=== PATIENT | male | born 1945 | race Caucasian/White ===

== ENCOUNTER 2016-12-03 23:30 | Emergency (ER) | payer OTHER, SELFPAY ==
--- NOTE | 2016-12-04 01:45 | ERRECORD ---
[facility] EMERGENCY RECORD [facility] CHIEF COMPLAINT: Patient presents for evaluation of high blood pressure. HISTORIAN: History provided by patient, 71M presents to the ED with concern for BP abnormality. States his systolic is high and diastolic low. Also reports occasional headaches when he stands up, and notes a history of orthostatic hypotension. Denies chest pain, denies abdominal pain or other complaints. Describes headache as occurring when he stands up, but otherwise not present, denies worst headache of his life or sudden onset. Reports that his heart rate is usually slow. LOCATION: Symptoms are generalized. QUALITY: Pain is dull in nature, described as aching. TIME COURSE: There has been no change in the patient's symptoms over time, are intermittent. ASSOCIATED WITH: No associated chest pain, Associated with headache. EXACERBATED BY: Patient's condition exacerbated by nothing. RELIEVED BY: Patient's condition relieved by nothing. RISK FACTORS: Coronary artery disease risk factors, include known coronary artery disease. ROS (23:52 JJA) CONSTITUTIONAL: Negative constitutional review of systems, Historian denies chills, denies fever. EYES: Negative eye review of systems, Historian denies eye pain, denies eye discharge, denies vision changes. ENT: Negative ears, nose, throat review of systems, Historian denies rhinorrhea, denies sore throat. CARDIOVASCULAR: Negative cardiovascular review of systems, Historian denies chest pain, denies palpitations. RESPIRATORY: Negative respiratory review of systems, Historian denies cough, denies shortness of breath. GI: Negative gastrointestinal review of systems, Historian denies abdominal pain, denies constipation, denies diarrhea, denies nausea, denies vomiting. GENITOURINARY MALE: Negative genitourinary review of systems, Historian denies dysuria, denies hematuria. MUSCULOSKELETAL: Negative musculoskeletal review of systems, Historian denies back pain, denies fall, denies injury, denies neck pain. SKIN: Negative skin review of systems, Historian denies rash, denies skin changes. NEUROLOGIC: Historian reports headache, reports headache. HEMO/LYMPHATIC: Normal hematologic/lymphatic system review, Historian denies abnormal blood clotting. PAST MEDICAL HISTORY (23:42 [facility]ADK) MEDICAL HISTORY: Past medical history includes history of hypertension, which has been treated, Patient is compliant, &a-1R&a+25V*p+0X*[id number]*c202B*c15G*c2P*p-0X&a-25V&a+1R Name: Rm Loredo : 1945 M71 MedRec: [id number] AcctNum: [id number] Prepared: Susana Dec 04, 2016 01:26 by Interface Page [address] 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 REVIEWED 12/03/16. MALE SURGICAL HISTORY: 2 HEART CATHS-NO STENTS, CAROTID ENDARTECTOMY,. heart ablation; ear tube inserted few years ago. brain surgery, left middle toe amputation. REVIEWED 12/03/16. PSYCHIATRIC HISTORY: No previous psychiatric history. REVIEWED 12/03/16. SOCIAL HISTORY: Social History includes lives with , Patient denies alcohol use, Patient denies drug use, Patient is a former tobacco user, Patient quit smoking more than 10 years ago. REVIEWED 12/03/16. FAMILY HISTORY: Family history is non-contributory to this case. KNOWN ALLERGIES No Known Allergies (Unconfirmed) No Known Drug Allergies CURRENT MEDICATIONS atorvastatin: TABLET : Strength - 20 mg : ORAL Patient Dose: 20 mg Oral once a day (at bedtime). (23:38 AADK) NovoLOG Flexpen: INSULIN PEN (ML) : Strength - 100 unit/mL : [3 mL(s)] : SUBCUTANEOUS Patient Dose: 25 units Subcutaneous 3 times a day (before meals).NOT USED RECENTLY. (23:38 AADK) lisinopril: TABLET : Strength - 40 mg : ORAL Patient Dose: 40 mg Oral once a day (in the morning). (23:38 AADK) citalopram: TABLET : Strength - 40 mg : ORAL Patient Dose: 20 mg Oral once a day. (23:38 AADK) cyanocobalamin (vitamin B-12): TABLET : Strength - 1,000 mcg : ORAL Patient Dose: 1000 mcg Oral once a day. (23:38 AADK) levETIRAcetam: TABLET : Strength - 500 mg : ORAL Patient Dose: 500 mg Oral 2 times a day. (23:38 AADK) Lasix: TABLET : Strength - 20 mg : ORAL Patient Dose: 1 tab(s) Oral once a day. (23:38 AADK) amLODIPine: TABLET : Strength - 5 mg : ORAL Patient Dose: 5 mg Oral once a day (in the morning). (23:38 AADK) Levemir: &a-1R&a+25V*p+0X*c6123B*c202B*c15G*c2P*p-0X&a-25V&a+1R Name: Rm Loredo : 1945 M71 MedRec: [id number] AcctNum: [id number] Prepared: Susana Dec 04, 2016 01:26 by Interface Page [address] [facility] EMERGENCY RECORD VIAL (ML) : Strength - 100 unit/mL : SUBCUTANEOUS Patient Dose: 80 units Subcutaneous 2 times a day. (23:39 AADK) VITAL SIGNS VITAL SIGNS: BP: 181/72, Pulse: 54, Resp: 18 (Non-Labored), Temp: 97.6 (Oral), Pain: 0, O2 sat: 97 on Room Air, Time: 12/03/2016 23:41. (23:41 [facility]) BP: 171/67, Pulse: 51, O2 sat: 95 on Room Air, Time: 12/03/2016 23:46. (23:46 AADK) BP: 153/64, Pulse: 53, Resp: 20 (Non-Labored), O2 sat: 98 on Room Air, Time: 12/03/2016 17:35. (17:35 AADK) BP: 168/72, Time: 12/04/2016 00:30. (MonDec 04, 2016 00:30 AADK) BP: 162/66, Time: 12/04/2016 00:45. ([place] Dec 04, 2016 00:45 [facility]) BP: 150/78, Pulse: 48, Resp: 16, Pain: 0, O2 sat: 97 on RA, Time: 12/04/2016 01:20. ([place] Dec 04, 2016 01:20 [facility]) PHYSICAL EXAM (23:52 [facility]) CONSTITUTIONAL: Vital signs reviewed, Patient afebrile, Pulse, bradycardic, Blood pressure, hypertensive, Respiratory rate normal, Patient appears non toxic, Patient appears pain free, Patient alert and oriented to person, place and time. HEAD: Head exam normal, Head exam included findings of head atraumatic, normocephalic. EYES: Eye exam normal, Eye exam included findings of eyelids normal to inspection, Pupils equally round and reactive to light, Extraocular muscles intact, no nystagmus. ENT: ENT exam normal, Ear exam normal, external ear normal, tympanic membranes normal, no bleeding, Pharynx exam normal, Uvula exam normal, Tonsil exam normal, Mouth exam normal, mucous membranes moist, teeth normal. NECK: Neck exam normal, Neck exam included findings of normal range of motion, Trachea midline, no meningeal signs, no cervical adenopathy, no tenderness. RESPIRATORY CHEST: Respiratory and chest exam normal, Respiratory exam included findings of no respiratory distress, Breath sounds clear. CARDIOVASCULAR: Cardiovascular assessment normal, Cardiovascular exam included findings of heart rate regular rate and rhythm, Heart sounds normal. ABDOMEN MALE: Abdominal exam included findings of abdomen nontender, Bowel sounds normal, no distension, no mass, no pulsatile masses, no peritoneal signs, no rigidity, no guarding, no rebound, Rovsing's sign absent. BACK: Back exam normal, Back exam included findings of normal inspection, range of motion normal, no tenderness. UPPER EXTREMITY: Upper extremity exam normal, Upper extremity exam included findings of inspection normal, Range of motion normal, Motor strength normal, Sensation intact, Radial pulse normal. &a-1R&a+25V*p+0X*d1384S*c202B*c15G*c2P*p-0X&a-25V&a+1R Name: Rm Loredo : 1945 M71 MedRec: [id number] AcctNum: [id number] Prepared: Susana Dec 04, 2016 01:26 by Interface Page [address] [facility] EMERGENCY RECORD LOWER EXTREMITY: Lower extremity exam normal, Lower extremity exam included findings of inspection normal, Range of motion normal, Motor strength normal, Sensation intact, Posterior tibial pulse normal, Pedal pulse normal. NEURO: Neuro exam normal, Neuro exam findings include patient oriented to person, place and time, Speech normal, Gait normal. SKIN: Skin exam normal, Skin exam included findings of skin warm, dry, and normal in color, no rash. PSYCHIATRIC: Psychiatric exam normal, Normal affect. EKG INTERPRETATION ([place] Dec 04, 2016 00:12 [facility]) 12 LEAD EKG INTERPRETATION: 12 lead EKG shows, sinus bradycardia, Interpretation:, Similar to old EKG, Conduction with, incomplete left bundle branch block. DOCTOR NOTES ([place] Dec 04, 2016 00:12 [facility]) TEXT: Patient presented with a concern for abnormal blood pressure readings at home. He has some headaches with standing that are not abnormal for him due to his orthostatic hypotension. No findings concerning for subarachnoid hemorrhage, normal head CT and no acute ischemic changes noted on his EKG. His bradycardia is not abnormal for him, and he has no chest pain symptoms that would prompt further workup or investigation. He has an appointment with his wine blender on the , and will try and get one earlier. Appropriate for discharge home and outpatient follow up. PATIENT STATUS: Patient has improved since arrival to emergency department. PATIENT PLAN: The patient will be discharged. DATA REVIEWED: Xray data reviewed, Reviewed EKG. PROBLEM LIST No recorded problems DIAGNOSIS ([place] Dec 04, 2016 01:09 [facility]) FINAL: PRIMARY: Hypertension. PRESCRIPTION No recorded prescriptions DISPOSITION PATIENT: Disposition Type: Discharge, Disposition: *Discharge Home. ([place] Dec 04, 2016 01:09 [facility]) Patient left the department. ([place] Dec 04, 2016 01:23 [facility]) Vazquez: [facility]=[place] Gonzales, Sarah [facility]=MD Saleem Jason [facility]=[place] Hill, Stephanie &a-1R&a+25V*p+0X*c3979G*c202B*c15G*c2P*p-0X&a-25V&a+1R Name: Rm Loredo : 1945 M71 MedRec: [id number] AcctNum: [id number] Prepared: Susana Dec 04, 2016 01:26 by Interface Page 4 of 4 pMD MTDD
--- NOTE | 2016-12-04 01:47 | PICIS ---
[facility] EMERGENCY RECORD TRIAGE ([facility] Dec 03, 2016 23:35 AADK) PATIENT: NAME: Rm Loredo, AGE: 71, GENDER: male, : Mon1945, TIME OF GREET: Sat Dec 03, 2016 23:31, PREFERRED LANGUAGE: Taiwanese, ETHNICITY: Not or , ECODE BILLING MAP: [facility], SSN: [id number], Zip Code: [address], KG WEIGHT: [phone] (est.), PHONE: , , , PERSON ID: [id number], PCP: DR. JANNY FLOWER IN . ([facility] Dec 03, 2016 23:35 AADK) PAYMENT: [employer]. (23:39) COMPLAINT: HYPERTENSION. ([facility] Dec 03, 2016 23:35 AADK) ADMISSION: URGENCY: 3 Urgent, ADMISSION SOURCE: Home, TRANSPORT: CAR, BED: ER -03. ([facility] Dec 03, 2016 23:35 AADK) PAIN: No complaint of pain. (23:42 AADK) SIRS SCORING: Heart Rate 40-54 (1), Temp range 96.8-101.1 (0), respiratory rate 12-24 (0), Mental Status altered: no (0), Total SIRS Score 1, Infection or Suspected Infection: No. (23:42 AADK) TRIAGE SCREENING: Patient denies suicidal ideation, Patient denies presence of domestic violence. (23:42 AADK) PROVIDERS: TRIAGE NURSE: Sarah Gonzales RN. ([facility] Dec 03, 2016 23:35 AADK) PREVIOUS VISIT ALLERGIES: No Known Drug Allergies. ([facility] Dec 03, 2016 23:35 AADK) No Known Drug Allergies. (23:42 AADK) KNOWN ALLERGIES No Known Allergies (Unconfirmed) No Known Drug Allergies CURRENT MEDICATIONS atorvastatin: TABLET : Strength - 20 mg : ORAL Patient Dose: 20 mg Oral once a day (at bedtime). (23:38 AADK) NovoLOG Flexpen: INSULIN PEN (ML) : Strength - 100 unit/mL : [3 mL(s)] : SUBCUTANEOUS Patient Dose: 25 units Subcutaneous 3 times a day (before meals).NOT USED RECENTLY. (23:38 AADK) lisinopril: TABLET : Strength - 40 mg : ORAL Patient Dose: 40 mg Oral once a day (in the morning). (23:38 AADK) citalopram: TABLET : Strength - 40 mg : ORAL Patient Dose: 20 mg Oral once a day. (23:38 AADK) cyanocobalamin (vitamin B-12): TABLET : Strength - 1,000 mcg : ORAL Patient Dose: 1000 mcg Oral once a day. (23:38 AADK) levETIRAcetam: TABLET : Strength - 500 mg : ORAL &a-1R&a+25V*p+0X*i0800I*c202B*c15G*c2P*p-0X&a-25V&a+1R Name: Rm Loredo : 1945 M71 MedRec: [id number] AcctNum: [id number] Prepared: Susana Dec 04, 2016 01:26 by Interface Page 1 of 7 pMD [facility] RECORD Patient Dose: 500 mg Oral 2 times a day. (23:38 AADK) Lasix: TABLET : Strength - 20 mg : ORAL Patient Dose: 1 tab(s) Oral once a day. (23:38 AADK) amLODIPine: TABLET : Strength - 5 mg : ORAL Patient Dose: 5 mg Oral once a day (in the morning). (23:38 AADK) Levemir: VIAL (ML) : Strength - 100 unit/mL : SUBCUTANEOUS Patient Dose: 80 units Subcutaneous 2 times a day. (23:39 AADK) VITAL SIGNS VITAL SIGNS: BP: 181/72, Pulse: 54, Resp: 18 (Non-Labored), Temp: 97.6 (Oral), Pain: 0, O2 sat: 97 on Room Air, Time: 12/03/2016 23:41. (23:41 KSPL) BP: 171/67, Pulse: 51, O2 sat: 95 on Room Air, Time: 12/03/2016 23:46. (23:46 AADK) BP: 153/64, Pulse: 53, Resp: 20 (Non-Labored), O2 sat: 98 on Room Air, Time: 12/03/2016 17:35. (17:35 AADK) BP: 168/72, Time: 12/04/2016 00:30. (Susana Dec 04, 2016 00:30 AADK) BP: 162/66, Time: 12/04/2016 00:45. (MonDec 04, 2016 00:45 AADK) BP: 150/78, Pulse: 48, Resp: 16, Pain: 0, O2 sat: 97 on RA, Time: 12/04/2016 01:20. (Susana Dec 04, 2016 01:20 AADK) NURSING ASSESSMENT: CARDIOVASCULAR (23:35 AADK) CONSTITUTIONAL: Patient arrives ambulatory, Gait steady, History obtained from patient, Patient appears comfortable, Patient cooperative, Patient alert, Oriented to person, place and time, Skin warm, Skin dry, Skin normal in color, Mucous membranes pink, Mucous membranes moist, Patient is well-groomed, Patient complains of HYPERTENSION, PT PRESENTS TO ER WITH C/O HYPERTENSION. STATES HE STARTED HAVING ANN AND DIZZINESS TODAY WITH B/P READING OF 172/67. STATES ANN ONLY WHEN HE STANDS UP, DENIES PAIN AT THIS TIME. DENIES N/V, BLURRED VISION OR CP. B/P STANDING 174/76 WITH REPEAT OF 153/[address] FELTON AT BEDSIDE. PAIN: DENIES PAIN AT PRESENT. CARDIOVASCULAR: Cardiovascular assessment findings include heart rate normal, Heart sounds normal, S1, S2, Left radial pulse +3(easily palpated, considered normal), Right radial pulse +3(easily palpated, considered normal), Associated with dizziness, described as patient spinning, no associated palpitations. RESPIRATORY/CHEST: Breath sounds clear, Respiratory assessment findings include respiratory effort easy, Respirations regular, Conversing normally, Neck and chest exam findings include trachea midline, Chest expansion equal, Chest movement symmetrical, no signs of distress, no retractions noted, no cyanosis. SAFETY: Side rails up, Cart/Stretcher in lowest position, Call light within reach, Hospital ID band on, Patient in view of the &a-1R&a+25V*p+0X*i6730E*c202B*c15G*c2P*p-0X&a-25V&a+1R Name: Rm Loredo : 1945 M71 MedRec: [id number] AcctNum: [id number] Prepared: Susana Dec 04, 2016 01:26 by Interface Page 2 of 7 pMD [facility] EM[facility]GENC[facility] RECORD nursing station. NURSING PROCEDURE: DISCHARGE NOTE ([place] Dec 04, 2016 01:20 AADK) DISCHARGE: Patient discharged to home, ambulating without assistance, family driving, unaccompanied, Summary of Care printed/ provided, Patient requested and was provided an electronic copy of Discharge Instructions, Transition record given to patient, Discharge instructions given to patient, Simple or moderate discharge teaching performed, Above person(s) verbalized understanding of discharge instructions and follow-up care. BELONGINGS: Belongings remain with patient, Valuables remain with patient. VITAL SIGNS: BP: 150, / 78, Pulse: 48, Resp: 16, Pain: 0, O2 sat: 97, on: RA, Time: 0115. NURSING PROCEDURE: NURSE NOTES ([place] Dec 04, 2016 00:58 AADK) NURSES NOTES: Patient is improving, Patient in no apparent distress, Patient is awaiting results, Notes: PT RESTING QUIETLY. DENIES COMPLAINTS. AWAITING CT READING. NURSING PROCEDURE: TRANSPORT TO TESTS PATIENT IDENTIFIER: Patient actively involved in identification process, Patient's identity verified by patient stating name, Patient's identity verified by patient stating date. (23:57 AADK) TRANSPORT TO TESTS: Transport indicated to facilitate diagnosis, Patient transported to CT scan, via wheelchair, Accompanied by x-ray garage door technician. (23:57 AADK) FOLLOW-UP: After procedure, patient returned to emergency department. ([place] Dec 04, 2016 00:02 AADK) SAFETY: Side rails up, Cart/Stretcher in lowest position, Call light within reach, Hospital ID band on, Patient in view of the nursing station. ([place] Dec 04, 2016 00:02 AADK) ORDER DETAILS Order Name: CT Brain WO Con, Status: Active, Time: 23:48 12/03/2016, User: ZAINA, - Ordered for: MD Felton Jason, - Entered by: MD Felton Jason - Sat Dec 03, 2016 23:48, - Quantity: 1, Order Name: EKG 12 Lead in Emergency Room, Status: Active, Time: 23:48 12/03/2016, User: ZAINA, - Ordered for: MD Felton Jason, - Entered by: MD Felton Jason - Sat Dec 03, 2016 23:48, - Quantity: 1. HPI HYPERTENSION (23:49 [facility]) CHIEF COMPLAINT: Patient presents for evaluation of high blood pressure. HISTORIAN: History provided by &a-1R&a+25V*p+0X*a9813E*c202B*c15G*c2P*p-0X&a-25V&a+1R Name: Rm Loredo : 1945 M71 MedRec: [id number] AcctNum: [id number] Prepared: Susana Dec 04, 2016 01:26 by Interface Page 3 of 7 pMD [facility] EM[facility] RECORD patient, 71M presents to the ED with concern for BP abnormality. States his systolic is high and diastolic low. Also reports occasional headaches when he stands up, and notes a history of orthostatic hypotension. Denies chest pain, denies abdominal pain or other complaints. Describes headache as occurring when he stands up, but otherwise not present, denies worst headache of his life or sudden onset. Reports that his heart rate is usually slow. LOCATION: Symptoms are generalized. QUALITY: Pain is dull in nature, described as aching. TIME COURSE: There has been no change in the patient's symptoms over time, are intermittent. ASSOCIATED WITH: No associated chest pain, Associated with headache. EXACERBATED BY: Patient's condition exacerbated by nothing. RELIEVED BY: Patient's condition relieved by nothing. RISK FACTORS: Coronary artery disease risk factors, include known coronary artery disease. ROS (23:52 [facility]) CONSTITUTIONAL: Negative constitutional review of systems, Historian denies chills, denies fever. EYES: Negative eye review of systems, Historian denies eye pain, denies eye discharge, denies vision changes. ENT: Negative ears, nose, throat review of systems, Historian denies rhinorrhea, denies sore throat. CARDIOVASCULAR: Negative cardiovascular review of systems, Historian denies chest pain, denies palpitations. RESPIRATORY: Negative respiratory review of systems, Historian denies cough, denies shortness of breath. GI: Negative gastrointestinal review of systems, Historian denies abdominal pain, denies constipation, denies diarrhea, denies nausea, denies vomiting. GENITOURINARY MALE: Negative genitourinary review of systems, Historian denies dysuria, denies hematuria. MUSCULOSKELETAL: Negative musculoskeletal review of systems, Historian denies back pain, denies fall, denies injury, denies neck pain. SKIN: Negative skin review of systems, Historian denies rash, denies skin changes. NEUROLOGIC: Historian reports headache, reports headache. HEMO/LYMPHATIC: Normal hematologic/lymphatic system review, Historian denies abnormal blood clotting. 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 REVIEWED 12/03/16. MALE SURGICAL HISTORY: 2 HEART CATHS-NO STENTS, CAROTID ENDARTECTOMY,. heart ablation; ear tube inserted few years ago. brain surgery, left middle toe amputation. REVIEWED 12/03/16. PSYCHIATRIC HISTORY: No previous psychiatric history. REVIEWED 12/03/16. SOCIAL HISTORY: Social History includes lives with , Patient denies alcohol use, Patient denies drug use, Patient is a former tobacco user, Patient quit smoking more than 10 years ago. REVIEWED 12/03/16. FAMILY HISTORY: Family history is non-contributory to this case. PHYSICAL EXAM (23:52 [facility]) CONSTITUTIONAL: Vital signs reviewed, Patient afebrile, Pulse, bradycardic, Blood pressure, hypertensive, Respiratory rate normal, Patient appears non toxic, Patient appears pain free, Patient alert and oriented to person, place and time. HEAD: Head exam normal, Head exam included findings of head atraumatic, normocephalic. EYES: Eye exam normal, Eye exam included findings of eyelids normal to inspection, Pupils equally round and reactive to light, Extraocular muscles intact, no nystagmus. ENT: ENT exam normal, Ear exam normal, external ear normal, tympanic membranes normal, no bleeding, Pharynx exam normal, Uvula exam normal, Tonsil exam normal, Mouth exam normal, mucous membranes moist, teeth normal. NECK: Neck exam normal, Neck exam included findings of normal range of motion, Trachea midline, no meningeal signs, no cervical adenopathy, no tenderness. RESPIRATORY CHEST: Respiratory and chest exam normal, Respiratory exam included findings of no respiratory distress, Breath sounds clear. CARDIOVASCULAR: Cardiovascular assessment normal, Cardiovascular exam included findings of heart rate regular rate and rhythm, Heart sounds normal. ABDOMEN MALE: Abdominal exam included findings of abdomen nontender, Bowel sounds normal, no distension, no mass, no pulsatile masses, no peritoneal signs, no rigidity, no guarding, no rebound, Rovsing's sign absent. BACK: Back exam normal, Back exam included findings of normal inspection, range of motion normal, no tenderness. UPPER EXTREMITY: Upper extremity exam normal, Upper extremity exam included findings of inspection normal, Range of motion normal, Motor strength normal, Sensation intact, Radial pulse normal. LOWER EXTREMITY: Lower extremity exam normal, Lower extremity exam included findings of inspection normal, Range of motion normal, Motor strength normal, Sensation intact, Posterior tibial pulse normal, Pedal pulse normal. &a-1R&a+25V*p+0X*n5724X*c202B*c15G*c2P*p-0X&a-25V&a+1R Name: Rm Loredo : 1945 M71 MedRec: [id number] AcctNum: [id number] Prepared: Susana Dec 04, 2016 01:26 by Interface Page 5 of 7 D [facility] EM[facility]GENC[facility] RECORD NEURO: Neuro exam normal, Neuro exam findings include patient oriented to person, place and time, Speech normal, Gait normal. SKIN: Skin exam normal, Skin exam included findings of skin warm, dry, and normal in color, no rash. PSYCHIATRIC: Psychiatric exam normal, Normal affect. EVENTS TRANSFER: Triage to Emergency Emergency Room -03. ([facility] Dec 03, 2016 23:35 AADK) Removed from Emergency Emergency Room -03. ([place] Dec 04, 2016 01:23 AADK) EKG INTERPRETATION ([place] Dec 04, 2016 00:12 [facility]) 12 LEAD EKG INTERPRETATION: 12 lead EKG shows, sinus bradycardia, Interpretation:, Similar to old EKG, Conduction with, incomplete left bundle branch block. DOCTOR NOTES ([place] Dec 04, 2016 00:12 [facility]) TEXT: Patient presented with a concern for abnormal blood pressure readings at home. He has some headaches with standing that are not abnormal for him due to his orthostatic hypotension. No findings concerning for subarachnoid hemorrhage, normal head CT and no acute ischemic changes noted on his EKG. His bradycardia is not abnormal for him, and he has no chest pain symptoms that would prompt further workup or investigation. He has an appointment with his gill box fixer on the , and will try and get one earlier. Appropriate for discharge home and outpatient follow up. PATIENT STATUS: Patient has improved since arrival to emergency department. PATIENT PLAN: The patient will be discharged. DATA REVIEWED: Xray data reviewed, Reviewed EKG. PROBLEM LIST No recorded problems DIAGNOSIS ([place] Dec 04, 2016 01:09 [facility]) FINAL: PRIMARY: Hypertension. DISPOSITION PATIENT: Disposition Type: Discharge, Disposition: *Discharge Home. ([place] Dec 04, 2016 01:09 [facility]) Patient left the department. ([place] Dec 04, 2016 01:23 AADK) INSTRUCTION ([place] Dec 04, 2016 01:09 [facility]) DISCHARGE: HYPERTENSION, ESTABLISHED. SPECIAL: Follow up with your gill box fixer next available appointment. Return to the ED if you have worsening chest pain or headache. PRESCRIPTION No recorded prescriptions &a-1R&a+25V*p+0X*j0300X*c202B*c15G*c2P*p-0X&a-25V&a+1R Name: Rm Loredo : 1945 M71 MedRec: [id number] AcctNum: [id number] Prepared: MonDec 04, 2016 01:26 by Interface Page 6 of 7 pMD [facility] RECORD IMAGING *EKG: Image captured from scanner. (23:58 AADK) CT REPORT: Image captured from scanner. ([place] Dec 04, 2016 01:14 AADK) Page 2 added. Image captured from scanner. ([place] Dec 04, 2016 01:14 AADK) *SUPPLY CHARGE SHEET: Image captured from scanner. ([place] Dec 04, 2016 01:14 AADK) *DISCHARGE INSTRUCTIONS RECEIPT: Image captured from scanner. (MonDec 04, 2016 01:21 AADK) ADMIN (MonDec 04, 2016 01:09 ZAINA) DIGITAL SIGNATURE: MD Felton Jason. Vazquez: AADK=[place] Gonzales, Sarah CASTROC=MD Felton Jason KSPL=[place] Hill, Stephanie &a-1R&a+25V*p+0X*d4041L*c202B*c15G*c2P*p-0X&a-25V&a+1R Name: Rm Loredo : 1945 M71 MedRec: [id number] AcctNum: [id number] Prepared: MonDec 04, 2016 01:26 by Interface Page 7 of 7 pMD MTDD
--- NOTE | 2016-12-04 13:36 | CT ---
PRELIMINARY REPORT/[facility]/EMERGENCY AFTER HOURS PROCEDURE: EXAM: CT Head Without Intravenous Contrast. CLINICAL HISTORY: 71 years old, male; Pain; Headache; Tension; Prior surgery; Surgery date: 6+ months; Surgery type: B rain tumor removed 04/20/16. Pt recieved radiation. ; Patient HX: History provided by patient, 71m pre sents to the ed with concern for BP abnormality. States his systolic is high and diastolic low. Also reports occasional headaches when he stands up, and notes a history of orthostatic hypotension. Den ies chest pain, denies abdominal pain or other complaints. Describes headache as occurring when he s tands up, but otherwise not present, denies worst headache of his life or sudden onset. Reports that his heart rate is usually slow. ; TECHNIQUE: Axial computed tomography images of the head/brain without intravenous contrast. COMPARISON: CT - ///FL05/ORG/, HEAD, TRAUMA HEAD 5X5 (W BONE WIN) 10/02/2016 10:14:37 PM FINDINGS: Brain: Right frontal encephalomalacia, not significantly changed. Scattered areas of hypoattenuation , likely chronic small vessel ischemic change, demyelination, or gliosis. Ventricles: Normal. Bones/joints: Normal. No acute fracture. Soft tissues: Normal. Vasculature: Atherosclerotic vascular calcifications. Sinuses: Minimal ethmoid sinus disease. Mastoid air cells: Normal as visualized. No mastoid effusion. IMPRESSION: 1. No acute findings. 2. Non-acute findings are described above. Thank you for allowing us to participate in the care of your patient. Dictated and Authenticated by: Riley Bradford MD 12/04/2016 1:05 AM Central Time ([place] \T\ [place]) FINAL REPORT CT OF THE BRAIN WITHOUT CONTRAST: Date: 12/03/[address] was done for evaluation of increased blood pressure and headaches. Comparison is henrietta rawls with an 10/02/16 study. FINDINGS: There has been on significant interval change. 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 There is an overlying craniotomy defect as before. No acute bleeding was seen in this patient. T here is no sign of acute stroke, mass, or edema. The ventricles, particularly the frontal horns of t he lateral ventricles, are a little larger than expected, but no different than before. 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 There were no acute findings. Report in agreement with preliminary reading by [facility]. POS: HOME
== END 2016-12-04 01:20 | disposition home or self-care (01) ==
LOC: BURERS 23:30
DX: I10 Essential (primary) hypertension (principal); I20.9 Angina pectoris, unspecified; Z87.891 Personal history of nicotine dependence
CPT/HCPCS: 70450; 93005

== ENCOUNTER 2018-11-30 18:06 | Emergency (ER) | payer OTHER | END 2018-11-30 19:34 | disposition home or self-care (01) | LOC: BURERS 18:06 | DX: I10 Essential (primary) hypertension (principal); E11.9 Type 2 diabetes mellitus without complications; Z79.4 Long term (current) use of insulin; F32.9 Major depressive disorder, single episode, unspecified; Z87.891 Personal history of nicotine dependence; Z79.899 Other long term (current) drug therapy | CPT/HCPCS: 99283 ==